=== PATIENT | female | born 1975 | race Caucasian/White ===

== ENCOUNTER → 2021-03-26 | Outpatient (CLI) | payer OTHER ==
[~2021-03-26] MED LIST: CATAPRES 0.1MG0.1 MG PO; CATAPRES0.2 MG PO; COREG25 MG PO; FERROUS SULFAT325 MG PO; HYDRALAZINE HCL25 MG PO; LEVAQUIN750 MG PO; LISINOPRIL20 MG PO; LORTAB 5-325 M1 EACH PO; METFORMIN HCL500 MG PO; MICROZIDE12.5 MG PO; MULTI-VITAMIN1 EACH PO; NORVASC10 MG PO; VITAMIN D35000 UNIT PO
== END ==
LOC: KOH-I 15:48
DX: S92.321A Displaced fracture of second metatarsal bone, right foot, initial encounter for closed fracture (principal)
CPT/HCPCS: 73630

== ENCOUNTER → 2021-04-06 | Outpatient (CLI) | payer OTHER ==
[2021-04-06 12:03] LABS: HEMOGLOBIN 12.7 gm/dl (12.3-15.3); RED BLOOD COUNT 4.41 M/UL (4.00-5.10); WHITE BLOOD COUNT 11.2 K/UL (4.5-11.0)
== END ==
LOC: LAB 11:30
PROVIDERS: Nurse Practitioner Family
DX: E11.9 Type 2 diabetes mellitus without complications (principal); E78.5 Hyperlipidemia, unspecified; R79.89 Other specified abnormal findings of blood chemistry
CPT/HCPCS: 36415; 80053; 80061; 84439; 84443; 85025